=== PATIENT | female | born 1990 | race Caucasian/White ===

== ENCOUNTER 2017-04-24 00:26 | Emergency (ER) | payer MEDICAID ==
[2017-04-24] MEDS ORDERED: NORMAL SALINE 1000 ML 1,000 ML IV ONE (01:55)
[2017-04-24] MEDS ORDERED: ONDANSETRON HCL INJ/PF 4 MG/2 ML SDV IV ONE (01:55)
--- NOTE | 2017-04-24 01:59 | ER Document Report ---
ED GI/ - General Chief Complaint: Nausea/Vomiting Stated Complaint: NAUSEA Time Seen by Provider: 04/24/17 01:49 Notes: Patient is a female at 8 weeks gestation by last menstrual period that comes emergency department for chief complaint of nausea, difficulty eating, vomiting, and muscle aches. She denies specific abdominal pain, she denies pelvic pain, vaginal bleeding, flank pain, fever. She denies any surgeries or daily medications. TRAVEL OUTSIDE OF THE [place] IN LAST 30 DAYS: No - Related Data Allergies/Adverse Reactions: acetaminophen [From Percocet] Allergy (Verified 04/24/17 01:15) oxycodone [From Percocet] Allergy (Verified 04/24/17 01:15) Penicillins Allergy (Verified 04/24/17 01:15) Past Medical History - General Information source: Patient - Social History Smoking Status: Never Smoker Frequency of alcohol use: None Drug Abuse: None Lives with: Family Family History: Reviewed & Not Pertinent Patient has suicidal ideation: No Patient has homicidal ideation: No - Medical History Medical History: Negative Renal/ Medical History: Denies: Hx Peritoneal Dialysis Surgical Hx: Negative - Immunizations Immunizations up to date: Yes Hx Diphtheria, Pertussis, Tetanus Vaccination: Yes Review of Systems - Review of Systems Constitutional: No symptoms reported EENT: No symptoms reported Cardiovascular: No symptoms reported Respiratory: No symptoms reported Gastrointestinal: See HPI Genitourinary: See HPI Female Genitourinary: See HPI Musculoskeletal: No symptoms reported Skin: No symptoms reported Hematologic/Lymphatic: No symptoms reported Neurological/Psychological: No symptoms reported Physical Exam - Vital signs Vitals: Temp Pulse Resp BP Pulse Ox 98.3 F 64 16 109/62 100 04/24/17 01:13 04/24/17 01:13 04/24/17 01:13 04/24/17 01:13 04/24/17 01:13 Interpretation: Normal - General General appearance: Appears well, Alert In distress: None - HEENT Head: Normocephalic, Atraumatic Eyes: Normal Pupils: PERRL - Respiratory Respiratory status: No respiratory distress Chest status: Nontender Breath sounds: Normal Chest palpation: Normal - Cardiovascular Rhythm: Regular. No: Tachycardia Heart sounds: Normal auscultation, S1 appreciated, S2 appreciated Murmur: No - Abdominal Inspection: Normal Distension: No distension Bowel sounds: Normal Tenderness: Nontender. No: Tender, McBurney's point, Guarding Organomegaly: No organomegaly - Back Back: Normal, Nontender - Extremities General upper extremity: Normal inspection, Nontender, Normal color, Normal ROM , Normal temperature General lower extremity: Normal inspection, Nontender, Normal color, Normal ROM , Normal temperature, Normal weight bearing. No: Adriana's sign - Neurological Neuro grossly intact: Yes Cognition: Normal Orientation: AAOx4 Masoud Coma Scale Eye Opening: Spontaneous Masoud Coma Scale Verbal: Oriented [place] Coma Scale Motor: Obeys Commands Masoud Coma Scale Total: 15 Speech: Normal Motor strength normal: LUE, RUE, LLE, RLE Sensory: Normal - Psychological Associated symptoms: Normal affect, Normal mood - Skin Skin Temperature: Warm Skin Moisture: Dry Skin Color: Normal Course - Re-evaluation Re-evalutation: Chemistry shows slightly low bicarbonate, mildly low potassium, urinalysis shows evidence of infection with 3+ bacteria and white blood cells. HCG is positive. Patient was given IV fluids and Zofran initially, afterwards she states she feels improved but not completely better. Patient was given Pepcid. After this her symptoms completely resolved, she tolerated p.o. without any difficulty. She states she feels much improved and she is ready to leave. She request a prescription of both medications given here today, she states that she will be following up closely with [facility] [facility], discussed return precautions, patient and significant other state understanding and agreement. - Vital Signs Vital signs: Temp Pulse Resp BP Pulse Ox 98.0 F 66 18 97/59 L 99 04/24/17 04:11 04/24/17 04:11 04/24/17 04:11 04/24/17 04:11 04/24/17 04:11 - Laboratory Result Diagrams: 04/24/17 02:04 Laboratory results interpreted by me: 04/24/17 04/24/17 02:04 03:10 Sodium 136.9 L Potassium 3.5 L Carbon Dioxide 20 L BUN 5 L Creatinine 0.44 L Urine Ketones TRACE H Ur Leukocyte Esterase TRACE H Urine HCG, Qual POSITIVE H Discharge - Discharge Clinical Impression: Nausea and vomiting during Condition: Stable Disposition: HOME, SELF-CARE Additional Instructions: Take the Zofran as prescribed if needed for nausea, Benadryl can also help with nausea, take the Pepcid if needed for reflux symptoms as well. Your urine indicates infection, take the antibiotic to completion. Follow up with the PASSENGER RATE CLERK referral for additional management. Return to the emergency department for any concerning or worsening symptoms including uncontrolled vomiting, fever, severe abdominal pain, or any other concerning symptoms. Prescriptions: Cephalexin Monohydrate [Keflex 500 mg Capsule] 500 mg PO BID #6 capsule Famotidine [Pepcid 20 mg Tablet] 20 mg PO BID PRN #20 tablet PRN Reason: Ondansetron [Zofran Odt 4 mg Tablet] 1 - 2 tab PO Q4H PRN #30 tab.rapdis PRN Reason: For Nausea/Vomiting Referrals: [facility] [Provider Group] - Follow up as needed
[2017-04-24 02:28] LABS: ANION GAP 11 (5-19); BLOOD UREA NITROGEN 5 mg/dL (7-20); CALCIUM 8.5 mg/dL (8.4-10.2); CARBON DIOXIDE 20 mmol/L (22-30); CHLORIDE 106 mmol/L (98-107); CREATININE RESULT 0.44 mg/dL (0.52-1.25); GLUCOSE 75 mg/dL (75-110); POTASSIUM 3.5 mmol/L (3.6-5.0); SODIUM 136.9 mmol/L (137-145)
[2017-04-24] MEDS ORDERED: FAMOTIDINE 20 MG TABLET PO ONE (03:20)
[2017-04-24 03:36] LABS: APPEARANCE,URINE SLIGHTLY-CLOUDY; BILIRUBIN,URINE NEGATIVE (NEGATIVE); GLUCOSE, URINE NEGATIVE (NEGATIVE); KETONES,URINE TRACE mg/dL (NEGATIVE); LEUKOCYTE ESTERASE,URINE TRACE (NEGATIVE); NITRITE,URINE NEGATIVE (NEGATIVE); PROTEIN,URINE NEGATIVE (NEGATIVE); URINE SPECIFIC GRAVITY 1.011; UROBILINOGEN,URINE NEGATIVE mg/dL (<2.0)
[2017-04-24] MEDS ORDERED: ONDANSETRON ODT 4 MG TAB (6 TAB/DSPK) PO PRN (03:56)
[2017-04-24 04:14] VITALS: BP 97/59
== END 2017-04-24 04:14 | disposition home or self-care (01) ==
LOC: ER 00:26
DX: O21.9 Vomiting of pregnancy, unspecified (principal); M79.1 Myalgia; Z3A.08 8 weeks gestation of pregnancy; Z88.6 Allergy status to analgesic agent; Z88.0 Allergy status to penicillin
CPT/HCPCS: 99284; 96374; 36415; 81025; 80048; 81001; J2405; J7030